=== PATIENT | female | born 1985 | race Caucasian/White ===

== ENCOUNTER 2019-10-30 11:55 | Emergency (ER) | payer BC, SELFPAY ==
--- NOTE | ~2019-10-30 | XR_ITS ---
EXAMINATION: XR hip RT 2V w AP pelvis EXAM DATE: 10/30/2019 12:35 INDICATION: Initial encounter following injury, with pain of the right hip. Fall. TECHNIQUE: Right hip frontal, crosstable lateral and 'frog-leg' projections for interpretation. Front al projection pelvis. There is no prior study for comparison. FINDINGS: Smooth right hip femoral head contour, no radiographic evidence of avascular necrosis. The re is minimal symmetric bilateral hip primary osteoarthritis. There are no acute fractures or disloca tions identified. There is no subcutaneous gas. The soft tissue is unremarkable. There are no rad iopaque foreign bodies. IMPRESSION: No acute osseous findings. Reviewed, dictated and finalized at location B. [employer] EQUIPMENT REPAIRER IMPRESSION: No acute osseous findings.
--- NOTE | ~2019-10-30 | XR_ITS ---
EXAMINATION: XR lumbar spine 2-3V EXAM DATE: 10/30/2019 12:35 INDICATION: Fall, back pain. TECHNIQUE: Lumber spine frontal, lateral, lateral L5-S1 projections for interpretation. There is no prior study for comparison. FINDINGS: There are no acute fractures identified. Mild lower lumbar facet arthropathy. There is 2 o r 3 mm retrolisthesis L5 on S1 with mild disc disease at this level. The vertebral bodies are otherwi se aligned. The vertebral body and disc heights are otherwise well maintained. Right upper abdominal surgical clips. Sacrum, sacroiliac joints, sacral arcuate lines are intact. Calcifications in the pel vis are believed to be phleboliths. IMPRESSION: Mild spondylosis. No acute fracture. Reviewed, dictated and finalized at location B. MECHANIC
[2019-10-30 12:00] VITALS: BP 138/82; PULSE 78; RESP 18; TEMP 37.2; O2SAT 100
--- NOTE | 2019-10-30 12:11 | ED.FALL ---
HPI - Fall General Chief Complaint: Fall Stated Complaint: fall/hip pain Time Seen by Provider: 10/30/19 12:08 Source: patient Mode of arrival: ambulatory Limitations: no limitations History of Present Illness HPI Narrative: The pt is a 33 y/o female who presents to the ED with c/o a fall that occurred last night around 21:00. The pt states that she was sitting on a barstool, went to [facility], and fell onto the concrete floor in her basement. The pt hit the back of her head and lower back during the fall, but she denies LOC at that time. She reports lower back pain, rt hip pain , but denies severe headache, dizziness, syncope, numbness, or vomiting. She notes that the back pain radiates down her rt leg down the rt knee and has been causing her to bear more weight on her lt side when walking. The back pain was present immediately after the fall but has progressively worsened even with Tylenol, heating, and icing. The pt has stage 4 adrenal CA and is currently on an immunotherapy study trial. She notes that she has several suspicious spots on her lungs and another on her liver. She also has a PMHx of depression and anxiety, as well as a SHx of an adrenal gland removal and 4 ablations of the liver. Her oncologist is Dr. Livingston at [place] and her last CT and MRI was on October 27 of this year. The pt occasionally drinks alcohol and uses medical marijuana, but does not smoke cigarettes. She last took Tylenol at 08:15 this morning. complaint: fall Onset (ago): day(s) (last night) Fall from: other (bar stool) Location of injury: back (lower) Associated symptoms (after fall): headache and other (lower back pain, rt knee pain) Related Data Allergies Allergy/AdvReac Type Severity Reaction Status Date / Time cephalexin [From Keflex] Allergy Swelling Verified 10/30/19 12:15 diclofenac Allergy Vomiting Verified 10/30/19 12:15 fish oil Allergy Itching Verified 10/30/19 12:15 Penicillins Allergy Unknown Verified 10/30/19 12:15 Review of Systems Review of Systems: All systems reviewed & are unremarkable except as noted in HPI and below Gastrointestinal: Gastrointestinal: Denies nausea and Denies vomiting Musculoskeletal: Musculoskeletal: Reports back pain (lower) and Reports other (rt knee pain) Neurologic: Denies dizziness, Denies syncope and Denies numbness PMFSH Past Medical History Medical History (Updated 10/30/19 @ 13:34 by Yazmin Rogel MD) Adrenal cancer stage 4 Anxiety Depression Surgical History Surgical History (Updated 10/30/19 @ 12:31 by Cheryl Uribe) Hx of prior ablation treatment liver Hx of total adrenalectomy Social History Social History (Updated 10/30/19 @ 12:42 by Cheryl Uribe) Smoking status: Never smoker Alcohol intake: current Substance use type: marijuana Exam Narrative: Exam Narrative: GENERAL: Well-appearing, well-nourished, and in no acute distress. HEAD: Normocephalic, atraumatic EYES: PERRLA and EOMI, conjunctiva clear without discharge EARS: TM's clear bilaterally without erythema or dullness NOSE: Nares clear, no rhinorrhea or epistaxis THROAT:Mucous membranes moist, Oropharynx normal without erythema, exudate, peritonsillar swelling or fluctuance NECK: Supple, without lymphadenopathy or mass, no midline cervical tenderness RESPIRATORY: No respiratory distress, Airway patent, Respirations non-labored, Clear to auscultation without rales, rhonchi or wheeze, no chest wall pain HEART: Regular rate and rhythm. No murmur heard. Normal peripheral pulses. ABDOMEN: Soft, nontender, nondistended, normal active bowel sounds. No masses. No rebound or guarding, No organomegaly. EXTREMITIES: No edema, normal strength with full range of motion. SKIN: Warm, dry, normal color without rash NEURO: Alert and oriented x3. CN 2-12 grossly intact. No focal deficits. PSYCH: Normal mood and affect. Back/Spine/Pelvis: Back: no CVA tenderness Cervical Spine: No cervical ROM normal P
--- NOTE | 2019-10-30 12:16 | PC.NURSE ---
Pt states is on clinical trial meds through [facility] for adrenal corticol carcinoma.
[2019-10-30] MEDS: ONDANSETRON INJ 4 MG/2 ML VIAL IV PUSH (12:55)
[2019-10-30] MEDS: KETOROLAC 30 MG/ML VIAL (*BKC) IV PUSH (12:56)
== END 2019-10-30 13:50 | disposition home or self-care (01) ==
PROVIDERS: Emergency Provider General Practice
DX: S30.0XXA Contusion of lower back and pelvis, initial encounter (principal); C74.90 Malignant neoplasm of unspecified part of unspecified adrenal gland; F41.9 Anxiety disorder, unspecified; F32.9 Major depressive disorder, single episode, unspecified; M47.816 Spondylosis without myelopathy or radiculopathy, lumbar region; W08.XXXA Fall from other furniture, initial encounter
CPT/HCPCS: 72100; 73502; 73521; 96374; 96375; 99284; J1885; J2405

== ENCOUNTER 2021-03-07 07:55 | Emergency (ER) | payer BC, SELFPAY ==
--- NOTE | ~2021-03-07 | XR_ITS ---
EXAMINATION: XR hand RT min 3V EXAM DATE: 03/07/2021 08:17 INDICATION: Smashed hand, pain right 3rd finger. Initial encounter. TECHNIQUE: Right hand frontal, lateral and oblique projections obtained and reviewed. There is no pr ior study for comparison. FINDINGS: Right metacarpal bones are unremarkable. There are no acute fractures or dislocations iden tified. There is no subcutaneous gas. The soft tissue is unremarkable. There are no radiopaque fo reign bodies. IMPRESSION: 1. XR hand RT min 3V exam without acute osseous findings. Reviewed, dictated and finalized at location A.
[2021-03-07 08:04] VITALS: BP 119/95; PULSE 70; RESP 18; TEMP 36.3; O2SAT 97
--- NOTE | 2021-03-07 08:45 | ED.UPPEXIN ---
HPI - Extremity Injury (Upper) General Chief Complaint: Extremity Injury, Upper Stated Complaint: hand injury Time Seen by Provider: 03/07/21 08:03 Source: RN notes reviewed History of Present Illness HPI narrative: Patient presents emergency department from home for right hand pain. Patient states that yesterday her her right hand was smashed in a ladder she states pain across the right hand but worse in the third digit and believes the third digit was bent back she states she is able to fully move all of her digits but it hurts when she fully flexes especially at the third digit she denies any other trauma or injury states she took no pain medication today denies any numbness or tingling Related Data Allergies Allergy/AdvReac Type Severity Reaction Status Date / Time cephalexin [From Keflex] Allergy Swelling Verified 03/07/21 08:07 diclofenac Allergy Vomiting Verified 03/07/21 08:07 fish oil Allergy Itching Verified 03/07/21 08:07 Penicillins Allergy Unknown Verified 03/07/21 08:07 Review of Systems Review of Systems: Narrative: Gen.: Denies fevers or chills Musculoskeletal: See HPI Neuro: Denies numbness, tingling, weakness Skin: Denies rash Endo: Denies DM PMFSH Past Medical History Medical History Adrenal cancer stage 4 Anxiety Depression Surgical History Surgical History (Updated 10/30/19 @ 12:31 by Cheryl Uribe) Hx of prior ablation treatment liver Hx of total adrenalectomy Social History Social History Smoking status: Never smoker Alcohol intake: current Substance use type: marijuana Exam Narrative: Exam Narrative: APPEARANCE: No acute distress, nontoxic, resting in bed Eyes: EOMI HEENT: Normocephalic, atraumatic, RESPIRATORY: No respiratory distress MUSCULOSKELETAl: No tenderness to palpation of the right wrist or elbow radial pulse 2+ right of extremity neurovascular intact, tender to palpation in the right third digit over the second third and fourth MCP with tenderness throughout the dorsal third digit no swelling or ecchymosis seen full flexion-extension of all 5 MCP and IP joints, capillary refill less than 3 seconds NEURO: Awake and alert. Following commands, speech normal, no focal deficits SKIN:: Warm, dry. Normal Color no rash or lesions Course Course Emergency Course: Discussed with patient results of workup and diagnosis. Discussed need for follow-up with primary care, proper use of medication, and reasons to return to the emergency department. Patient understands and agrees to current treatment plan Vital Signs Vital signs: Vital Signs Temperature 97.4 F L 03/07/21 08:04 Pulse Rate 70 03/07/21 08:04 Respiratory Rate 18 03/07/21 08:04 Blood Pressure 119/95 H 03/07/21 08:04 Pulse Oximetry 97 03/07/21 08:04 Temperature 97.4 F L 03/07/21 08:04 Pulse Rate 70 03/07/21 08:04 Respiratory Rate 18 03/07/21 08:04 Blood Pressure 119/95 H 03/07/21 08:04 Pulse Oximetry 97 03/07/21 08:04 MDM - Extremity Injury (Upper) Imaging Data Radiologist's impression: ITS Impressions Hand X-Ray 03/07/21 08:37 IMPRESSION: 1. XR hand RT min 3V exam without acute osseous findings. Discharge Plan Discharge Clinical Impression: Contusion of finger of right hand, Sprain of right middle finger Patient Disposition: Home, Self-Care Condition: Stable Instructions: Antibiotic Form, Contusion in Adults (ED), Finger Sprain (ED) Additional Instructions: Return for increasing pain numbness or tingling in extremities or any other symptoms of concern Prescriptions: New ibuprofen [IBU] 600 mg tablet 600 mg PO Q6H PRN (Reason: pain) Qty: 20 RF: 0 No Action ibuprofen 800 mg tablet 800 mg PO Q6H PRN (Reason: pain) Qty: 14 RF: 0 Follow-up/Referrals: PHYSICIAN,BRIDGE ATTACHER [Primary Care Provider] - Tay Love,
[2021-03-07] MEDS: IBUPROFEN 600 MG TABLET PO (08:50)
== END 2021-03-07 09:08 | disposition home or self-care (01) ==
PROVIDERS: Emergency Provider Emergency Medicine
DX: S63.612A Unspecified sprain of right middle finger, initial encounter (principal); S60.00XA Contusion of unspecified finger without damage to nail, initial encounter; X58.XXXA Exposure to other specified factors, initial encounter
CPT/HCPCS: 29130; 73130; 99283; A9270

== ENCOUNTER 2022-04-01 18:49 | Emergency (ER) | payer BC, SELFPAY ==
[2022-04-01] VITALS (10 sets, daily range): BP systolic 130–138; BP diastolic 90–103; PULSE 97–140; RESP 19–35; TEMP 37.1; O2SAT 93–100
--- NOTE | 2022-04-01 18:57 | ECG_ITS ---
Measurements Intervals [place] Rate: 104 P: 14 DC: 126 QRS: 12 QRSD: 72 T: -32 QT: 321 QTc: 422 Interpretive Statements SINUS TACHYCARDIA MODERATE T-WAVE ABNORMALITY, CONSIDER ANTEROLATERAL ISCHEMIA [-0.1+ mV T WAVE IN V3- V6] NO PREVIOUS ECG AVAILABLE FOR COMPARISON Electronically Signed On 04-02-2022 11:03:11 CDT by Joshua Kohler M.D.
--- NOTE | 2022-04-01 19:12 | ED.SOB ---
HPI - SOB/Dyspnea General Chief Complaint: Shortness of Breath/Dyspnea Stated Complaint: cant breathe, lung surgery Time Seen by Provider: 04/01/22 19:00 Source: patient History of Present Illness HPI Narrative: Patient presents with shortness of breath. Patient reports history of metastatic adrenal cancer she has had ablations on her lungs and liver she is also had a lung resection she is on chronic hydrocortisone. They they were outside and she got progressively more weak. She is unsure related to the heat or dehydration. Feels like her chronic shortness of breath is worse is having hard time stopping the cough that is productive. She denies any fevers or congestion she denies any nausea vomiting or abdominal pain. Related Data Allergies Allergy/AdvReac Type Severity Reaction Status Date / Time cephalexin [From Keflex] Allergy Swelling Verified 04/01/22 19:20 fish oil Allergy Itching Verified 04/01/22 19:20 Penicillins Allergy Unknown Verified 04/01/22 19:20 diclofenac AdvReac Vomiting Verified 04/01/22 19:20 Review of Systems Review of Systems: CONSTITUTIONAL: Denies fever, chills, or sweats. EYES: Denies visual changes, redness, or discharge. ENT: Denies rhinorrhea, congestion, sore throat, or otalgia. CARDIOVASCULAR: Denies palpitations, or edema. RESPIRATORY: Shortness of breath and cough GASTROINTESTINAL: Denies abdominal pain, nausea, vomiting, or diarrhea. GENITOURINARY: Denies dysuria or hematuria. SKIN: Denies rash or itching. MUSCULOSKELETAL: Denies back pain, joint pain, or myalgia. NEUROLOGIC: Denies headache, numbness, dizziness, or weakness. PSYCHIATRIC: Denies anxiety or depression. All systems reviewed & are unremarkable except as noted in HPI and below PMFSH Past Medical History Medical History Adrenal cancer stage 4 Anxiety Depression Surgical History Surgical History Hx of prior ablation treatment liver Hx of total adrenalectomy Social History Social History Smoking status: Never smoker Alcohol intake: current Substance use type: marijuana Exam Narrative: GENERAL: Well-appearing, well-nourished, and in no acute distress. HEAD: Normocephalic, atraumatic. EYES: PERRLA and EOMI. ENT: Nares clear, no rhinorrhea or epistaxis. Mucous membranes moist. NECK: Supple. No masses. No JVD CHEST: Diminished aeration in all lung san with mild crackles bilateral bases HEART: Regular rate and rhythm. No murmur heard. Normal peripheral pulses. ABDOMEN: Soft, nontender, nondistended, normal active bowel sounds. EXTREMITIES: Normal range of motion. No edema. SKIN: Warm, dry, no rash. NEURO: No focal deficits. Alert and oriented x3. PSYCH: Normal mood and affect. Course Reevaluation(s) Reevaluation #1: Patient reports feeling much improved and feels like her usual self after fluids and ice chips. Work-up thus far is reviewed with the patient. Discussed pending CT imaging. The patient feels back to her baseline and she has close follow-up with her oncologist she would prefer to go home as her symptoms have resolved. Patient reports she is scheduled for a CT scan next week and would like to just have it done with her healthcare team at [facility]. As she did not want to wait for CT imaging she was offered a chest x-ray patient again declined and said that she feels again back to her baseline state of health and prefers to follow-up with her healthcare team at [facility]. Date: 04/01/22 Time: 20:29 Vital Signs Vital signs: Vital Signs Temperature 37.1 C 04/01/22 18:53 Pulse Rate 140 H 04/01/22 18:53 Respiratory Rate 28 H 04/01/22 18:53 Blood Pressure 138/103 H 04/01/22 18:53 Pulse Oximetry 94 04/01/22 18:53 Oxygen Delivery Room Air 04/01/22 18:53 Temperature 37.1 C 04/01/22 18:53 Pulse R
[2022-04-01 19:14] LABS: Basophils Absolute Auto 0.1 K/mm3 (0.0-0.1); Basophils Percent Auto 0.7 % (0.2-1.2); Eosinophils Absolute Auto 0.4 K/mm3 (0-0.3); Eosinophils Percent Auto 4.3 % (0-4.4); Hematocrit 39.1 % (37.0-47.0); Hemoglobin 12.4 g/dL (12.0-15.0); Immature Granulocyte Absolute 0.08 K/mm3 (0.00-0.031); Immature Granulocyte Percent A 0.9 % (0-0.5); Lymphocytes Absolute Auto 2.12 K/mm3 (0.9-3.2); Mean Corpuscular HGB Conc 31.7 g/dl (32-36); Mean Corpuscular Hemoglobin 28.9 pg (26-34); Mean Corpuscular Volume 91.1 fl (80-100); Mean Platelet Volume 10.4 fl (7.4-10.4); Monocytes Absolute Auto 0.6 K/mm3 (0.1-0.6); Monocytes Percent Auto 6.7 % (2.6-8.5); Neutrophils Absolute Auto 5.6 K/mm3 (1.3-6.7); Neutrophils Percent Auto 63.4 % (45.5-73.1); Platelet Count Result 457 k/mm3 (150-375); Red Blood Count 4.29 M/mm3 (4.2-5.4); Red Cell Distribution Width 13.2 % (11.5-14.5); White Blood Count 8.8 K/mm3 (4.5-10.0)
[2022-04-01 19:23] LABS: Alanine Aminotransferase 95 U/L (6-35); Albumin Level 4.5 g/dL (3.5-5.1); Alkaline Phosphatase 175 U/L (38-126); Anion Gap 12 mmol/L (8-16); Aspartate Amino Transferase 49 U/L (14-36); Bilirubin,Total 0.3 mg/dL (0.2-1.3); Blood Urea Nitrogen 13 mg/dL (7-17); Calcium 9.7 mg/dL (8.4-10.2); Carbon Dioxide 26 mmol/L (22-30); Chloride 103 mmol/L (98-107); Estimated CRCL calculation 75 ml/min; Estimated Glomerular Filt Rate > 60; Glucose 125 mg/dL (65-110); Potassium 4.3 mmol/L (3.4-5.0); Sodium 141 mmol/L (137-145)
[2022-04-01] MEDS: SODIUM CHLORIDE 0.9% IV 500 ML 999 ML IV CONT (19:38)
== END 2022-04-01 20:25 | disposition home or self-care (01) ==
PROVIDERS: Emergency Medicine; Emergency Provider Emergency Medicine; PCP Family Medicine
DX: R53.1 Weakness (principal); R05.9 Cough, unspecified; C74.90 Malignant neoplasm of unspecified part of unspecified adrenal gland; C78.00 Secondary malignant neoplasm of unspecified lung; R00.0 Tachycardia, unspecified; R94.31 Abnormal electrocardiogram [ECG] [EKG]; Z90.2 Acquired absence of lung [part of]
CPT/HCPCS: 36415; 80053; 85025; 93005; 96360; 99284; J7040